=== PATIENT | female | born 1950 | race Two or more races ===

== ENCOUNTER 2019-02-04 09:47 | Outpatient (CLI) | payer OTHER ==
[~2019-02-04] VITALS: Ht 152.4 cm; Wt 59.9 kg
== END 2019-02-04 10:00 | disposition home or self-care (01) ==
LOC: OFIC 805 09:47
DX: R42 Dizziness and giddiness (principal); H90.3 Sensorineural hearing loss, bilateral; H93.13 Tinnitus, bilateral; M26.609 Unspecified temporomandibular joint disorder, unspecified side

== ENCOUNTER 2023-01-12 05:25 | Day surgery (SDC) | payer OTHER ==
[~2023-01-12] VITALS: Ht 152.4 cm; Wt 61.2 kg
[~2023-01-12 05:25] MED LIST: HYDROCHLOROTHIA25 MG PO; IRBESARTAN150 MG PO; LIPITOR40 M1 PO; NORVASC2.5 M1 PO; QVAR REDIHALE10.6 G1 IH
== END 2023-01-12 12:00 | disposition home or self-care (01) ==
LOC: CIR.AMB 05:25
PROVIDERS: ATTEND Obstetrics & Gynecology
DX: N95.0 Postmenopausal bleeding (principal); N85.8 Other specified noninflammatory disorders of uterus; Z88.6 Allergy status to analgesic agent; Z20.822 Contact with and (suspected) exposure to COVID-19; I10 Essential (primary) hypertension; Z95.0 Presence of cardiac pacemaker